=== PATIENT | male | born 1955 | race Caucasian/White ===

== ENCOUNTER 2023-07-18 06:19 | Day surgery (SDC) | payer OTHER ==
[2023-07-18] VITALS (11 sets, daily range): BP systolic 100–132; BP diastolic 64–84; PULSE 52–57
[~2023-07-18] VITALS: Ht 165.1 cm; Wt 104.4 kg
[~2023-07-18 06:19] MED LIST: EMPA10TA3 PO; ICOS1CAP PO; METF-1211 PO; SEMA7TAB2 PO; SODIUM CHLORIDE 0.9% 1,000 ML ONE
[2023-07-18] MEDS ORDERED: SODIUM CHLORIDE 0.9% 1,000 ML IV ONE (07:00)
[2023-07-18] MEDS ORDERED: DiphenhydrAMINE HCL 50 MG CAPSULE ONE (08:01)
[2023-07-18] MEDS ORDERED: DIAZEPAM 5 MG TABLET ONE (08:02)
[2023-07-18] MEDS ORDERED: ASPIRIN 81 MG CHEWABLE TABLET ONE (08:02)
[2023-07-18 08:31] LABS: GLUCOMETER DEV NAME(LOC) SDS.; GLUCOSE,POINT OF CARE 131 MG/DL (70-110)
[2023-07-18] MEDS ORDERED: DiphenhydrAMINE HCL 50 MG CAPSULE PO ONE (09:00)
[2023-07-18] MEDS ORDERED: DIAZEPAM 5 MG TABLET PO ONE (09:00)
[2023-07-18] MEDS ORDERED: ASPIRIN 81 MG CHEWABLE TABLET PO ONE (09:00)
[2023-07-18] MEDS ORDERED: HEPARIN SODIUM 1000 UNITS/NS 1,000 ML ONE (09:11)
[2023-07-18] MEDS ORDERED: LIDOCAINE/PF 1% 30 ML VIAL ONE (09:11)
[2023-07-18] MEDS ORDERED: SODIUM BICARBONATE 50 MEQ/50 ML VIAL ONE (09:11)
[2023-07-18] MEDS ORDERED: IOHEXOL 300 MG/ML 100 ML VIAL ONE (09:11)
[2023-07-18] MEDS ORDERED: FentaNYL CITRATE PF 100 MCG/2 ML VIAL ONE (09:12)
[2023-07-18] MEDS ORDERED: MIDAZOLAM HCL 2 MG/2 ML VIAL ONE (09:12)
[2023-07-18] MEDS ORDERED: MIDAZOLAM HCL 2 MG/2 ML VIAL IVP ONE ×2 (09:30→10:00)
[2023-07-18] MEDS ORDERED: FentaNYL CITRATE PF 100 MCG/2 ML VIAL IVP ONE ×2 (09:30→10:00)
[2023-07-18] MEDS ORDERED: LIDOCAINE 1% 30 ML/SOD BICARB 8.4% 4 ML SQ ONE (09:30)
[2023-07-18] MEDS ORDERED: HEPARIN SODIUM 1000 UNITS/NS 1,000 ML IARTER ONE (09:30)
[2023-07-18] MEDS ORDERED: IOHEXOL 300 MG/ML 100 ML VIAL ICOR ONE (09:30)
[2023-07-18] MEDS ORDERED: IOHEXOL 300 MG/ML 50 ML VIAL ONE (10:00)
== END 2023-07-18 15:05 | disposition home or self-care (01) ==
LOC: CATHLAB 06:19
PROVIDERS: ATTEND Internal Medicine Interventional Cardiology
DX: I35.0 Nonrheumatic aortic (valve) stenosis (principal); Z79.899 Other long term (current) drug therapy; E11.9 Type 2 diabetes mellitus without complications; Z98.890 Other specified postprocedural states; I10 Essential (primary) hypertension
CPT/HCPCS: 93456; 93005; 82962; 99152; C1760; J3010; J1644; J3490 ×2; J2250; J7030; Q9967; 93460